=== PATIENT | female | born 1960 | race Caucasian/White ===

== ENCOUNTER 2016-12-08 06:10 | Day surgery (SDC) | payer OTHER ==
--- NOTE | 2016-12-07 19:39 | HISTORY AND PHYSICAL ---
ADMITTED: 12/08/2016 HISTORY OF PRESENT ILLNESS: The patient is a 56-year-old female with the chief complaint of a painful right foot. Carried out a Lapidus bunionectomy on 04/07/2016, which went without complication and has been healing well; however, states that the toe has gotten kind of stiff and she would like it to move more freely. MEDICAL/SURGICAL HISTORY: Past medical history: Includes a history of elevated cholesterol, hepatitis 1968, anxiety and depression. Surgical history: Tonsils and adenoids, the left foot surgery on 02/11/2016 and the right foot surgery of 03/2016. PRIMARY CARE PROVIDER: DENISSE Lee. MEDICATIONS: 1. Hydroxyzine 25 mg tablet 1 by mouth daily. 2. Trazodone 50 mg tablet 1 by mouth daily. 3. Zoloft 125 mg tablet 1 by mouth daily. ALLERGIES: 1. REPORTS A SENSITIVITY AND ALLERGY TO PSEUDOEPHEDRINE. SOCIAL HISTORY: She is . Drinks socially, does not smoke. FAMILY HISTORY: Noncontributory to chief complaint. REVIEW OF SYSTEMS: Ten-point review of systems positive for hepatitis A as a child and has resolved. PHYSICAL EXAMINATION: GENERAL: The patient is alert and oriented x3. HEENT: PERRLA. Normocephalic. Eyes: Pupils reactive to light. HEART: Regular rate and rhythm. Regular S1 and S2. No rubs or gallops. LUNGS: Clear to auscultation. No wheezing, rhonchi, or rales present. ABDOMEN: Soft, tender, nondistended. No palpable masses. Normal tones and turgor. EXTREMITIES: Lower extremity/Vascular: Dorsalis pedis, posterior tibial pulses are palpable. Subpapillary venous plexus capillary refill within normal limits. NEUROLOGIC: Deep tendon reflexes, epicritic sensations are intact. Linear incision has healed nicely over the right first MTP. The scar freely moves. However, with loading the foot there is noted blocking of the first MTP. LAB/IMAGING: Imaging taken on an OrthoScan weightbearing platform and under fluoroscopy, indeed sagittal plane elevatus of the first ray and blocking at the first MTP. There are no hardware complications. She has got a rectus and anatomic position at the first MTP. IMPRESSION: 1. Hallux limitus, grade 1. 2. First ray elevatus. PLAN: The patient is scheduled for an outpatient procedure consisting of a cheilectomy and freeing up any adhesions. She is well aware of the planned procedure. Surgery is scheduled on outpatient basis at [facility] on 12/08/2016.
[~2016-12-08] VITALS: Ht 160 cm; Wt 65.5 kg
[~2016-12-08 06:10] MED LIST: HYDROXYZINE HCL25 MG PO; MELATONIN1 TA1; MULTI VITAMIN/MINERA PO; PATANOL0.1 % OP; PERCOCET1 TA4 PO; TRAZODONE HCL50 MG PO; VITAMIN B12100 MCG PO; VITAMIN C500 M1 PO; VITAMIN D-31000 UNIT PO; VITAMIN E200 UNIT PO; ZOLOFT100 MG PO
[2016-12-08] MEDS ORDERED: ZOFRAN4 MG PO (08:42)
[2016-12-08] MEDS ORDERED: PERCOCET1 TA4 PO (08:42)
--- NOTE | 2016-12-08 08:58 | Provider's Discharge Care Plan ---
Problem, Goal, Plan Problem List 1. Acquired hallux valgus of right foot Goals: Improve function Instructions: Follow up as directed
--- NOTE | 2016-12-08 08:58 | Provider's Discharge Care Plan ---
Problem, Goal, Plan Problem List 1. Acquired hallux valgus of right foot Goals: Improve function Instructions: Follow up as directed
--- NOTE | 2016-12-08 09:33 | OPERATIVE REPORT ---
DATE OF SURGERY: 12/08/2016 SURGEON: Dominic Martinez DPM PREOPERATIVE DIAGNOSIS: 1. Hallux limitus, grade 1, first ray elevatus POSTOPERATIVE DIAGNOSIS: 1. Hallux limitus, grade 1, first ray elevatus PROCEDURE PERFORMED: 1. Cheilectomy, first MTP, right foot ANESTHESIA: General. HEMOSTASIS: Achieved by pneumatic tourniquet inflated to 250 mmHg pressure. TOURNIQUET TIME: 30 minutes. MATERIALS: Used 3-0 and 4-0 Polysorb, 4-0 Surgipro. INJECTABLES: Injected 2.5% bupivacaine plain. COMPLICATIONS: None. CONDITION: The patient tolerated anesthesia and procedure well. INDICATIONS: The patient is a 56-year-old female who underwent a bunionectomy approximately a year ago. However, she developed some stiffness in the joint. X- rays revealed an elevation at the metatarsal head and the first ray elevatus. We have elected to go forward with a cheilectomy as opposed to a decompressive osteotomy distally. She is well aware of the planned procedure. There are no contraindications to surgery at this time. SURGICAL TECHNIQUE: The patient was brought to the operating room and placed on the table in the supine position. General anesthetic was administered and a pneumatic tourniquet was then placed above the right ankle. The right lower extremity was prepped and draped in normal sterile fashion. An intraoperative pause was carried out for positive identification, proper limb, and consent form verified and confirmed. Esmarch bandage was then utilized to exsanguinate the limb, the tourniquet was then inflated. Attention was then directed to procedure 1. Cheilectomy, right first MTP. At this time, a linear incision was made proximal to the surgical neck of the first metatarsal, extending distally across first MTP. The incision was carried down to bone. All adherent tissue was reflected. The hypertrophied bone dorsally and medially was excised via a sagittal saw, contoured, smoothed, and remodeled. A McGlamry elevator was utilized to free up the adhesions of the sesamoids. There was noted to be excellent range of motion post-freeing. The area was flushed. Capsule and periosteum were reapproximated with 3-0 Polysorb, subcutaneous 4-0 and skin was reapproximated in running fashion with 4-0 Biosyn. The area was locally anesthetized with the aforementioned local anesthetic. A light compressive dressing was applied. The tourniquet was released with good reactive hyperemia and good perfusion. The patient tolerated anesthesia and procedure well and left the operating room with vital signs stable. While in recovery, instructions dispensed for utilization of a fracture boot. Prognosis is guarded. She was discharged in stable condition. Follow back with me in 3 to 5 days.
== END 2016-12-08 11:25 | disposition home or self-care (01) ==
LOC: OR SRH 06:10 → SCU SRH 06:11 → OR SRH 07:30
PROVIDERS: Podiatrist
PROC: 0QBN0ZZ Excision of Right Metatarsal, Open Approach (ICD-10-PCS; principal; 2016-12-08 07:30)
DX: M20.5X1 Other deformities of toe(s) (acquired), right foot (principal); M89.371 Hypertrophy of bone, right ankle and foot
CPT/HCPCS: 29229; 29240; 50004; 60001; 70002; 80212; 80575; 83169; 83414; 83773; 84038; 84522; 90047; 94060; 95059